=== PATIENT | male | born 1965 | race Caucasian/White ===

== ENCOUNTER 2017-05-03 10:52 | Emergency (ER) | payer SELFPAY ==
[~2017-05-03] VITALS: Ht 172.7 cm; Wt 61.1 kg
[2017-05-03 10:55] VITALS: BP 99/71
[2017-05-03] MEDS ORDERED: LEVE500T53 PO (11:21)
[2017-05-03] MEDS ORDERED: SODIUM CHLORIDE FLUSH 10ML SYR IVF ONE (11:30)
[2017-05-03] MEDS ORDERED: SODIUM CHLORIDE 0.9% 1,000ML IVBOLUS ONE (11:30)
== END 2017-05-03 11:49 | disposition left against medical advice (07) ==
LOC: ED 11:39
DX: R55 Syncope and collapse (principal); Z53.21 Procedure and treatment not carried out due to patient leaving prior to being seen by health care provider
CPT/HCPCS: 93005; 99281

== ENCOUNTER 2017-08-17 04:38 | Emergency (ER) | payer MEDICARE, OTHER ==
[~2017-08-17] VITALS: Ht 172.7 cm; Wt 64.2 kg
[~2017-08-17 04:38] MED LIST: LEVE500T53 PO
[2017-08-17 04:43] VITALS: BP 155/102
== END 2017-08-17 07:37 | disposition home or self-care (01) ==
LOC: ED 05:18
DX: S00.03XA Contusion of scalp, initial encounter (principal); X58.XXXA Exposure to other specified factors, initial encounter; Y93.89 Activity, other specified; Y92.89 Other specified places as the place of occurrence of the external cause; Y99.8 Other external cause status
CPT/HCPCS: 70450; 99284

== ENCOUNTER 2017-12-22 20:58 | Emergency (ER) | payer MEDICARE ==
[~2017-12-22] VITALS: Ht 172.7 cm; Wt 68.0 kg
[2017-12-22 21:01] VITALS: BP 110/74
== END 2017-12-22 23:40 | disposition home or self-care (01) ==
LOC: ED 23:25
DX: S93.491A Sprain of other ligament of right ankle, initial encounter (principal); F15.10 Other stimulant abuse, uncomplicated; Z72.89 Other problems related to lifestyle; Z91.14 Patient's other noncompliance with medication regimen; Z60.9 Problem related to social environment, unspecified; W18.39XA Other fall on same level, initial encounter; Y93.89 Activity, other specified; Y92.098 Other place in other non-institutional residence as the place of occurrence of the external cause; Y99.8 Other external cause status
CPT/HCPCS: 70450; 99284

== ENCOUNTER 2017-12-23 14:59 | Emergency (ER) | payer MEDICARE ==
[~2017-12-23] VITALS: Ht 172.7 cm; Wt 66.0 kg
[2017-12-23 15:14] VITALS: BP 103/74
== END 2017-12-23 16:40 ==
LOC: ED 16:34
DX: S93.401A Sprain of unspecified ligament of right ankle, initial encounter (principal); S09.90XA Unspecified injury of head, initial encounter; Z59.0 Homelessness; X50.1XXA Overexertion from prolonged static or awkward postures, initial encounter; Y93.89 Activity, other specified; Y92.89 Other specified places as the place of occurrence of the external cause; Y99.8 Other external cause status
CPT/HCPCS: 99284